=== PATIENT | male | born 1965 | race Caucasian/White ===

== ENCOUNTER → 2019-07-02 | Outpatient (CLI) | payer OTHER ==
[~2019-07-02] MED LIST: GADOTERATE 7.5 MMOL/15ML VIAL. IVP ONE
--- NOTE | 2019-07-02 16:43 | RAD ---
BRAIN WO/W CONTRAST History: Demyelinating disease. Technique: Multiplanar, multi sequential pre and postcontrast MR imaging was performed of the brain. Comparison: None Findings: No acute infarct. No intracranial hemorrhage. No mass effect. No hydrocephalus. Several foci of T2/FLAIR hyperintensity within the subcortical, deep and periventricular white matter. No pathologic enhancement. Imaged orbits are unremarkable. Right maxillary sinus mucous retention cyst or polyp. Mastoid air cells are clear. Impression: 1. Mild nonspecific white matter changes, can be seen with demyelinating disease in the appropriate clinical setting. Alternatively can be seen with sequelae of chronic microvascular ischemia, vasculitis or migraine headaches. No pathologic enhancement. Electronically signed by: Mckinley Breaux DO (07/02/2019 4:41 PM) [id number]
== END | disposition home or self-care (01) ==
LOC: MRI 13:49
PROVIDERS: ATTEND Psychiatry & Neurology Neurology with Special Qualifications in Child Neurology
DX: I67.82 Cerebral ischemia (principal); G37.9 Demyelinating disease of central nervous system, unspecified; R90.82 White matter disease, unspecified
CPT/HCPCS: 70553; A9575

== ENCOUNTER → 2019-11-20 | Outpatient (CLI) | payer OTHER ==
--- NOTE | 2019-11-20 12:47 | CARD ---
MR#: [id number] Date of Study: 11/20/2019 Ordering Physician: JOAQUINA KOWALSKI, Referring Physician: JOAQUINA KOWALSKI, Tech: Keisha Mathias [facility] [email or web address]] APPROVED REPORT EXAM: Two-dimensional and M-mode echocardiogram with Doppler and color Doppler. Other Information Quality : Good INDICATION Dyspnea 2D DIMENSIONS RVDd2.8 (2.9-3.5cm)Left Atrium(2D)3.2 (1.6-4.0cm) IVSd1.1 (0.7-1.1cm)Aortic Root(2D)3.1 (2.0-3.7cm) LVDd4.3 (3.9-5.9cm)LVOT Diameter2.1 (1.8-2.4cm) PWd1.1 (0.7-1.1cm)LVDs2.7 (2.5-4.0cm) FS (%) 37.5 %SV55.5 ml LVEF(%)67.8 (>50%) Aortic Valve AoV Peak Bud.116.4cm/sAoV VTI20.2cm AO Peak GR.5.4mmHgLVOT Peak Bud.89.7cm/s AO Mean GR.3mmHgAVA (VMAX)2.64cm2 ROBIN (VTI)2.90cm2 Mitral Valve MV E Wadtpxmc81.5cm/sMV DECEL AQDH450ei MV A Rfnnsygu12.2cm/sE/A Ratio1.4 Tricuspid Valve TR P. Vnsvxevx171nz/sRAP RUOTVDLK8tdWa TR Peak Gr.06kiHeMRNC44hoQe Pulmonary Vein S1 Hnljfbbc06.9cm/sD2 Lpueaqnf67.1cm/s LEFT VENTRICLE The left ventricle is normal size. There is normal left ventricular wall thickness. The left ventricu lar systolic function is normal and the ejection fraction is within normal range. The Ejection Fracti on is 55-60%. There is normal LV segmental wall motion. The left ventricular diastolic function and f illing is normal for age. RIGHT VENTRICLE The right ventricle is normal size. The right ventricular systolic function is normal. ATRIA The left atrium size is normal. The right atrium size is normal. The interatrial septum is intact wit h no evidence for an atrial septal defect or patent foramen ovale as noted on 2-D or Doppler imaging. AORTIC VALVE The aortic valve is normal in structure and function. Doppler and Color Flow revealed no significant aortic regurgitation. There is no significant aortic valvular stenosis. MITRAL VALVE The mitral valve is normal in structure and function. There is no evidence of mitral valve prolapse. There is no mitral valve stenosis. Doppler and Color Flow revealed no mitral valve regurgitation note d. TRICUSPID VALVE The tricuspid valve is normal in structure and function. Doppler and Color Flow revealed trace tricus pid regurgitation. There is no tricuspid valve stenosis. PULMONIC VALVE The pulmonic valve is not well visualized. Doppler and Color Flow revealed no pulmonic valvular regur gitation. There is no pulmonic valvular stenosis. GREAT VESSELS The aortic root is normal in size. The ascending aorta is normal in size. The IVC is normal in size a nd collapses >50% with inspiration. PERICARDIAL EFFUSION There is no evidence of significant pericardial effusion. Critical Notification Critical Value: No <Conclusion> The left ventricular systolic function is normal and the ejection fraction is within normal range. Th e Ejection Fraction is 55-60%. There is normal LV segmental wall motion. Signed by : Issa Patricia, Electronically Approved : 11/20/2019 12:47:22
--- NOTE | 2019-11-20 13:06 | RAD ---
MR#: [id number] Date of Study: 11/20/2019 Ordering Physician: JOAQUINA PATRICK, Referring Physician: JESSIE STAPLETON Tech: RT Jameel (R) (N) APPROVED REPORT Test Type: Exercise Stress Nurse/Tech: Tate Guzman Test Indications: Chest pain Cardiac History: No known cardiac Medications: See EHR Resting Heart Rate: 90 bpm Resting Blood Pressure: 131/62mmHg Pretest Chest Pain: None POST EXERCISE Reason for Termination: Reached target heart rate Target HR: 141 Max HR: 142 bpm 85% of Maximum Predicted HR: 167 bpm Exercise duration: 10:00 min:sec, Stage Exercise capacity: 13.4METs Max Blood Pressure: 156/78mmHg Chest Pain: Yes. Mild CP during exertion Arrhythmia: No. ST Change: No. INTERPRETATION Stress EKG Conclusion: The resting EKG shows a sinus rhythm and mild nonspecific T wave changes. The stress EKG shows no significant changes from baseline. No EKG evidence of stress-induced ischemia. Imaging Protocol IMAGE PROTOCOL: Rest Tc-99m/stress Tc-99m 1 day Rest: Stress: Viability: Radiopharm.Tc99m IgkvfwijwOd84m Sestamibi Dose10.7mCi 33mCi Duration 13.5min. 13.5min. Img Date 11/20/2019 11/20/2019 Inj-Img Rahb94plx. 60min. Rest Admin Site:IV - Left AntecubitalAdministrator:RT Gina (R)(N) Stress Admin Site: IV - Left AntecubitalAdministrator: JESSIE JohnsonTCJah, ARRT (R)(N) STRESS DATA End Diast. Vol.99.0mlLVEDV index BSA47.0ml End Syst. Vol.29.0mlLVESV index BSA14.0ml Myocardial Ezub247.0gEject. Aqcixgne53.0% Stress Scores Regional WT0.00Summed WT5.00 Regional WM0.00Summed WM0.00 LV Perfusion The stress scans show no significant defects. The rest scans showed no significant defects. Nuclear imaging shows no reversible ischemia or infarct. Wall Motion Left ventricular systolic function is normal with no regional wall motion abnormalities, and an eject ion fraction of greater than 70% and a TID of 0.97. LV Perf. Quant 17 Seg. SSS0.00 17 Seg. SRS0.00 17 Seg. SDS0.00 Stress Defect Extent (% LAD)0.00Rest Defect Extent (% LAD)0.00Rev. Defect Extent (% LAD)0.00 Stress Defect Extent (% LCX) 0.00Rest Defect Extent (% LCX)5.00Rev. Defect Extent (% LCX)0.00 Stress Defect Extent (% RCA)0.00Rest Defect Extent (% RCA)0.00Rev. Defect Extent (% RCA)0.00 Stress Defect Extent (% DEVIN)0.00Rest Defect Extent (% DEVIN)0.90Rev. Defect Extent (% DEVIN)0.00 Conclusion 1. Good exercise tolerance. 2. Mild chest pain with exertion. 3. No EKG evidence of stress-induced ischemia. 4. Nuclear imaging shows no reversible ischemia or infarct. 5. Normal left ventricular systolic function with an ejection fraction of greater than 70%. 6. Moderately low risk treadmill nuclear stress test. Signed by : Joaquina Patrick MD Electronically Approved : 11/20/2019 13:05:37
== END ==
LOC: NM 07:52
PROVIDERS: ATTEND Internal Medicine Cardiovascular Disease
DX: R06.02 Shortness of breath (principal); R07.9 Chest pain, unspecified
CPT/HCPCS: 78452; 93017; 93306; A9500

== ENCOUNTER → 2019-12-31 | Outpatient (CLI) | payer OTHER ==
[~2019-12-31] MED LIST changes: +ACET325T9 PO; +ASPI325T8 PO; -GADOTERATE 7.5 MMOL/15ML VIAL. IVP ONE; +IBUP200T44 PO; +OMEG1CAP68 PO
--- NOTE | 2019-12-31 14:58 | PAIN ---
DATE OF SERVICE: 12/31/2019 INITIAL CONSULTATION FOR PAIN CLINIC CHIEF COMPLAINT: Low back and left lower extremity pain. HISTORY OF PRESENT ILLNESS: This is a 54-year-old male who presents with history of pain in the low back, left lower extremity for 20+ years. No specific injury or action that he is aware of, but he did have injury a couple of years ago, but this is unrelated. The patient reports the pain in the low back, left leg, his posterior gluteus, posterior thigh, posterior calf and into the foot and sole of the foot involving all of the toes. The patient reports it is intermittent in intensity, worse with walking, standing, changing positions. He has tingling and numbness in the foot, shooting pain in the leg and across the low back. The patient reports it does not awaken him from sleep at night, does not affect his bowel or bladder control, but does affect his ability to walk at times if he goes more than about 15-20 minutes. The patient has had physical therapy, chiropractic treatment and exercises ongoing; all of which have helped to some extent. The patient does not take any medications currently for the pain. He has taken some ibuprofen in the past, which was helpful also. The patient rates his disability rating from 0-10, 10 being the worst, is an 8 with family and home responsibilities, 5 with recreation, 1 with social activities, sexual behavior, occupation, self-care and life support activities. The patient did have an MRI scan, which is pending review at this time, reportedly with a L5-S1 degenerative disk disease to a significant extent. PAST MEDICAL HISTORY: Significant for hearing loss, dizziness, arthritis. PREVIOUS SURGERY: No previous surgeries. MEDICATIONS: None. ALLERGIES: The patient reports no known drug allergies. FAMILY HISTORY: Significant for cancers, dementia, hypertension, Parkinson's disease, and cardiac issues. SOCIAL HISTORY: The patient drinks alcohol about 2-3 times weekly. Does not smoke. Denies using any illegal, illicit or recreational drugs. He is , lives with his spouse, lives locally in [place], [place], and has active duty with the [employer]. REVIEW OF SYSTEMS: The patient's review of systems is positive for those items mentioned in history of present illness. All systems reviewed and otherwise negative. It is complete, full and well documented on the patient's chart. PHYSICAL EXAMINATION: VITAL SIGNS: The patient's blood pressure is 143/81, pulse 67, respirations 18, temperature 98.4 degrees Fahrenheit, height is 5 feet 10 inches, weight is 212 pounds. GENERAL: The patient is awake, alert, oriented, appropriate, very pleasant demeanor. HEENT: Shows normocephalic, atraumatic. Extraocular movements are intact and symmetrical. Oral cavity shows mucous membranes moist and pink. Dentition is intact. NECK: Shows anterior throat supple without palpable lymphadenopathy noted. Swallow reflex symmetrical. CHEST: Shows normal on inspection. Breath sounds are clear bilaterally. No rales, rhonchi or wheezes auscultated. HEART: Shows S1, S2 clear. No murmurs auscultated. ABDOMEN: Soft, nontender, nondistended. No palpable organomegaly is noted. No rebound or guarding demonstrated. BACK: Shows spine grossly in the midline. Normal appearing thoracic kyphosis and minor flattening of lumbar lordotic curvature. Lumbar paraspinous muscle shows symmetrical with inspection, on palpation shows some moderate tenderness diffusely, but only diffusely without significant radiation. The patient has good rotational motion of lumbar spine, both laterally as well as extension and flexion greater than 10 degrees and forward flexion 45 degrees without significant pain reported. No tenderness over the spinous processes, sacrum or sacroiliac regions. EXTREMITIES: Lower extremities show deep tendon reflexes at 2+ patellar, 1+ tendo-calcaneus tendons. Motor exam is strong with 5/5 dorsiflexion, extension, quadriceps and hamstring flexion. Peripheral pulses are 1+ posterior tibia. No peripheral edema is noted. Lower extremities are warm and dry to touch, equal in color and appearance. Straight leg raise noted to be negative for reproduction of radicular symptoms bilaterally. Gaenslen's and Chalino's maneuvers are negative bilaterally as well. The patient is able to stand, stand on his toes without difficulty or loss of balance, walking with a normal-appearing gait, not using any assistive devices to ambulate. SKIN: The patient's skin shows warm and dry, good turgor. No edema. No sores, rashes or bruising throughout. IMPRESSION: 1. This is a 54-year-old male with a long history of 20 years low back pain, now in a radicular pattern in the left lower extremity in L5-S1 dermatomal distribution. 2. History of arthritis. PLAN: Options were discussed with the patient including conservative medical managements, continued physical therapies and interventional techniques. He would like to pursue interventional techniques. We discussed a lumbar epidural steroid injection using description as well as anatomical models to describe the procedure. The patient will wait for preauthorization with his insurance provider. We will have him return to clinic once this is obtained and plan on lumbar epidural steroid injection at that time. In the meantime, the patient will continue with stretching and strengthening exercises and working out as scheduled and return as scheduled. HOLLY CH MD DR: FABIAN/omkar JOB#: [id number] / [id number]
== END | disposition home or self-care (01) ==
LOC: PNCL 12:54
PROVIDERS: ATTEND Anesthesiology
DX: M79.605 Pain in left leg (principal); M54.5 Low back pain; Z82.61 Family history of arthritis
CPT/HCPCS: 99205; G0463

== ENCOUNTER → 2020-01-12 | Outpatient (CLI) | payer OTHER ==
--- NOTE | 2020-01-12 09:19 | PAIN ---
DATE OF SERVICE: 01/12/2020 PROGRESS NOTE FOR PAIN CLINIC DIAGNOSES: Lumbar radiculopathy with lumbar degenerative disk disease. HISTORY OF PRESENT ILLNESS: The patient is a 54-year-old male who returns for followup, status post preauthorization and previous initial evaluation for lumbar epidural steroid injection. The patient reports he is doing fairly well; however and is questioning whether he needs the injection at this time. He still has significant pain in the low back and left lower extremity, posterior gluteus, posterior thigh, posterior calf, radiating with activity, but the patient reports over the past week or so, he has been doing fairly well, and would like to wait on any injections. He reports his pain is a 6 on a scale of 10 at its worst over the past week, 3 on average, 1 at its least and is a 1 today. The patient reports it is aching, sharp and shooting at times, stabbing and tingling in the back. It can be constant with activity, but lately has been doing better on its own. The patient reports no new motor or sensory deficits, no bowel or bladder incontinence or other complaints. PHYSICAL EXAMINATION: VITAL SIGNS: The patient's blood pressure 129/83, pulse 69, respirations 16, temperature 98.2 degrees Fahrenheit, height is 5 feet 10 inches and weight is 210 pounds. GENERAL: The patient is awake, alert, oriented, appropriate, very pleasant demeanor. HEENT: Shows normocephalic, atraumatic. Extraocular movements are intact and symmetrical. Oral cavity: Mucous membranes moist and pink. Dentition is intact. NECK: Shows anterior throat supple. CHEST: Shows normal on inspection. Breath sounds are clear. HEART: Shows S1, S2 clear. ABDOMEN: Soft, nontender, nondistended. BACK: Shows spine grossly in midline. Lumbar paraspinous muscle shows symmetrical on inspection, on palpation shows some moderate tenderness diffusely bilaterally going diffusely without significant radiation. The patient shows good rotational motion of lumbar spine, both laterally as well as extension and flexion without significant difficulty. No tenderness over the spinous processes, sacrum or sacroiliac regions. EXTREMITIES: Lower extremities show deep tendon reflexes 2+ in the patellar, 1+ tendo-calcaneus tendons. Motor exam is 5/5 with dorsiflexion, extension, quadriceps and hamstring flexion and symmetrical. Peripheral pulses are 1+. No peripheral edema is noted. PLAN: Options were discussed with the patient. The patient's old chart was reviewed as his current medication regimen updated. Current review of systems updated today as well. We will proceed with holding any injections at this time as the patient is doing fair amount better and would like to give this more time. We talked about some stretching and strengthening exercises to do as daily exercise and importance of keeping core strength as well as back mobility and caution with lifting items as far as abusing any weight lifting capabilities, etc. The patient will maintain exercises and stretching and if pain begins to become more problematic will follow up at that time. HOLLY CH MD DR: FABIAN/omkar JOB#: [id number] / [id number]
== END | disposition home or self-care (01) ==
LOC: PNCL 07:51
PROVIDERS: ATTEND Anesthesiology
DX: M51.16 Intervertebral disc disorders with radiculopathy, lumbar region (principal); Z79.899 Other long term (current) drug therapy
CPT/HCPCS: G0463